=== PATIENT | female | born 1980 | race Asian ===

== ENCOUNTER 2022-07-26 09:04 | Emergency (ER) | payer OTHER ==
[~2022-07-26] VITALS: Ht 167.6 cm; Wt 90.7 kg
[2022-07-26 09:08] VITALS: BP 110/73; TEMP 97
== END 2022-07-26 12:20 | disposition home or self-care (01) ==
LOC: ED 09:04
DX: J20.9 Acute bronchitis, unspecified (principal)
CPT/HCPCS: 87502; 87651; 94664; 96372; 99283; J1100

== ENCOUNTER 2022-07-29 10:40 | Emergency (ER) | payer OTHER ==
[~2022-07-29] VITALS: Ht 167.6 cm; Wt 90.7 kg
[2022-07-29 10:42] VITALS: TEMP 98.2
[2022-07-29 12:30] VITALS: BP 136/92
== END 2022-07-29 12:31 | disposition home or self-care (01) ==
LOC: ED 10:40
DX: J20.9 Acute bronchitis, unspecified (principal); Z20.822 Contact with and (suspected) exposure to COVID-19
CPT/HCPCS: 87635; 96374; 99284; J2405; U0003

== ENCOUNTER 2023-02-26 21:51 | Emergency (ER) | payer OTHER ==
[~2023-02-26] VITALS: Ht 167.6 cm; Wt 80.7 kg
[2023-02-26 22:00] VITALS: TEMP 98.7
[2023-02-26 22:37] LABS: PLATELET COUNT 387 K/uL (152-353)
[2023-02-26 23:17] LABS: POTASSIUM 3.9 mmol/L (3.6-5.2)
[2023-02-27 00:35] VITALS: BP 138/80
== END 2023-02-27 00:35 | disposition home or self-care (01) ==
LOC: ED 21:51
PROVIDERS: Emergency Medicine Emergency Medical Services
DX: K59.09 Other constipation (principal); R73.9 Hyperglycemia, unspecified
CPT/HCPCS: 36415; 80048; 82272; 82805; 85027; 96360; 99284; J2405

== ENCOUNTER 2023-03-09 11:54 | Emergency (ER) | payer OTHER ==
[~2023-03-09] VITALS: Ht 172.7 cm; Wt 88.0 kg
[2023-03-09 11:55] VITALS: BP 118/85; TEMP 98.2
[2023-03-09 12:42] LABS: PLATELET COUNT 389 K/uL (152-353)
[2023-03-09 13:02] LABS: POTASSIUM 4.4 mmol/L (3.6-5.2); SODIUM 135 mmol/L (136-145)
[2023-03-10] MEDS ORDERED: LEVE500T5 (09:58)
[2023-03-10] MEDS ORDERED: HUMULIN 70/30 K1 INJ SC (09:58)
== END 2023-03-09 14:15 | disposition home or self-care (01) ==
LOC: ED 11:54
PROVIDERS: Family Medicine
DX: K31.84 Gastroparesis (principal); E86.0 Dehydration
CPT/HCPCS: 80053; 80307; 81002; 82150; 83690; 84484; 85027; 93005; 96365; 96366; 96374; 99284; J2405

== ENCOUNTER 2023-03-10 09:32 | Emergency (ER) | payer OTHER ==
[~2023-03-10] VITALS: Ht 172.7 cm; Wt 77.1 kg
[2023-03-10 09:38] VITALS: BP 150/97; TEMP 97.1
[2023-03-10] MEDS ORDERED: HUMULIN 70/30 K1 INJ SC (09:58)
[2023-03-10] MEDS ORDERED: LEVE500T5 (09:58)
[2023-03-10 10:20] LABS: PLATELET COUNT 388 K/uL (152-353)
== END 2023-03-10 13:42 | disposition home or self-care (01) ==
LOC: ED 09:32
PROVIDERS: Emergency Medicine Emergency Medical Services
DX: R11.10 Vomiting, unspecified (principal)
CPT/HCPCS: 36600; 81002; 82805; 85027; 93005; 99283; J2270; J2405; J2550; J3490

== ENCOUNTER 2023-03-12 15:52 | Outpatient (CLI) | payer OTHER ==
[~2023-03-12 15:52] MED LIST: HUMULIN 70/30 K1 INJ SC; LEVE500T5
[2023-03-12 16:54] LABS: PLATELET COUNT 355 K/uL (152-353)
[2023-03-12 17:06] LABS: POTASSIUM 3.7 mmol/L (3.6-5.2)
== END 2023-03-12 19:01 | disposition home or self-care (01) ==
LOC: LABW 15:52
PROVIDERS: ATTEND Nurse Practitioner Family
DX: R10.826 Epigastric rebound abdominal tenderness (principal)
CPT/HCPCS: 36415; 80053; 82150; 83690; 85027; Q9963

== ENCOUNTER 2023-03-14 14:10 | Outpatient (CLI) | payer OTHER | END 2023-03-14 19:17 | LOC: MAMMO 14:10 | PROVIDERS: ATTEND Registered Nurse | DX: Z12.31 Encounter for screening mammogram for malignant neoplasm of breast (principal) ==